=== PATIENT | male | born 1995 | race Caucasian/White ===

== ENCOUNTER 2022-09-28 10:00 | Emergency (ER) | payer SELFPAY ==
[~2022-09-28] VITALS: Ht 172.7 cm; Wt 95.2 kg
[2022-09-28] MEDS ORDERED: Bactrim Ds Tab1 EACH PO (12:08)
== END 2022-09-28 12:23 | disposition home or self-care (01) ==
LOC: ER 10:00
DX: L02.416 Cutaneous abscess of left lower limb (principal); F17.200 Nicotine dependence, unspecified, uncomplicated
CPT/HCPCS: 99282